=== PATIENT | female | born 1960 | race Caucasian/White ===

== ENCOUNTER 2016-08-15 12:06 | Inpatient (IN) ==
--- NOTE | 2016-08-15 12:13 | Emergency Department Note ---
Disposition Clinical Impression: COPD (chronic obstructive pulmonary disease), Fever Disposition: Admitted As Inpatient Condition: Good Referrals: NO,PCP [Non-Partnered Physician] - Forms: ED Satisfaction Letter Time of Disposition: 13:57 ([facility]) SOB HPI - General Chief Complaint: ED Shortness of Breath/Dyspnea Stated Complaint: diffiiculty breathing Time Seen by Provider: 08/15/16 12:10 Source: patient Mode of arrival: ambulatory Limitations: no limitations Nursing Notes Reviewed: Yes Vital Signs Reviewed: Yes - History of Present Illness Three-day history of fever chills cough congestion runny nose intermittent wheezing worse last evening starting to ease up today patient has had a fevers had no apnea or cyanosis has had sputum production denies any rashes or lesions denies any additional complaints Pt Subjective Complaint: shortness of breath Onset (ago): day(s) (3) Severity: moderate Consistency/Duration: constant, gradually worsening Improves with: nothing Worsens with: exertion, movement, coughing Associated symptoms: Reports: fever, cough, wheezing, sputum production. Denies : chest pain, pain with inspiration, orthopnea, lower extremity pain, polyuria, polydipsia, parasthesias, palpitations, hemoptysis, diaphoresis, nausea/vomiting , syncope, abdominal pain, sense of impending doom Treatment prior to arrival: oxygen Cough present: Yes Cough Description: Involuntary, Weak, Wheezy Cough Frequency: Intermittent Sputum production: Yes Sputum Amount: Small Sputum Color: Yellow - Related Data Home Medications Medication Instructions Recorded Confirmed Aclidinium [place] [Tudorza 400 mcg IH BID 10/13/15 08/15/16 Pressair] Albuterol Sulfate [Ventolin Hfa] 2 puff IH Q4-6H PRN 10/31/15 08/15/16 Budesonide/Formoterol 160/4.5 2 puff IH BIDR 01/13/16 08/15/16 [Symbicort 160/4.5] FLUoxetine HCl [Prozac] 60 mg PO DAILY 01/13/16 08/15/16 Fluticasone Propionate Nasal 50 mcg NS BID 01/13/16 07/15/16 [Flonase] Lamotrigine [Lamictal] 200 mg PO BID 01/13/16 08/15/16 Omeprazole [PriLOSEC] 40 mg PO DAILY 01/13/16 08/15/16 Propranolol [Inderal] 20 mg PO BID 01/13/16 08/15/16 Aripiprazole [Abilify] 20 mg PO DAILY 08/15/16 08/15/16 Allergies Allergy/AdvReac Type Severity Reaction Status Date / Time No Known Allergies Allergy Verified 10/31/15 12:16 All systems ED: reviewed and negative except as stated. Constitutional: Reports: fever, chills. Denies: weakness Eyes: Denies: eye pain ENT ED: Reports: ear pain, throat pain, congestion Cardiovascular: Denies: chest pain, palpitations, syncope Respiratory: Reports: cough, dyspnea, wheezes, sputum production Gastrointestinal: Denies: abdominal pain, nausea Genitourinary: Denies: urgency Musculoskeletal: Denies: back pain Integumentary: Denies: rash, abrasion Neurological: Denies: headache Psychiatric: Denies: anxiety Endocrine: Denies: fatigue Hematological/Lymphatic: Denies: easy bleeding Allergic/Immunologic: Denies: facial swelling Past Medical History - Past Medical History Attestation: Yes The following information was validated with the patient. 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 - Social History Smoking Status: Current every day smoker Smokeless Tobacco Status: No Alcohol use: Reports: none Drug use: Reports: none, other Physical Exam - General Limitations: no limitations General appearance: alert, in no apparent distress - Head Head exam: atraumatic, normocephalic, normal inspection - Eye Eye exam: Present: normal appearance, PERRL, EOMI - ENT ENT exam: normal exam, normal oropharynx, mucous membranes moist, normal external ear exam - Neck Neck exam: Present: normal inspection, full ROM, trachea midline - Chest Chest inspection: Present: normal inspection, symmetric chest wall rise - Respiratory Respiratory exam: Present: wheezes, prolonged expiratory phase - Cardiovascular Cardiovascular exam: Present: regular rate, normal rhythm, normal heart sounds - Abdominal Exam Abdominal exam: Present: soft, Non-Tender, normal bowel sounds - Extremities Exam Extremities exam: Present: normal inspection, full ROM, normal capillary refill. Absent: tenderness, joint swelling - Expanded Lower Extremity Exam Gait: observed and normal - Back Exam Back exam: Present: normal inspection, full ROM. Absent: muscle spasm - Neurological Exam Neurological exam: Present: alert, oriented X3, CN II-XII intact - Psychiatric Psychiatric exam: Present: normal affect, normal mood - Skin Skin exam: Present: warm, dry, intact, normal color Course Course Narrative: Patient seen and examined DuoNeb ordered chest x-ray ordered laboratory data were awaiting results startedantibiotics - Reevaluation(s) Reevaluation #1: Slight improvement post aerosol patient still that was wheezy throughout the lung dan but was moving air a lot easier than she was but with any type of movement start to have some desaturation as result recommended observation transfer to [facility] Dr. [place] agreed Vital Signs Temperature 100.2 F H 08/15/16 12:09 Pulse Rate 101 08/15/16 12:09 Respiratory Rate 21 08/15/16 12:09 Blood Pressure 147/70 08/15/16 12:09 O2 Sat by Pulse Oximetry 91 08/15/16 12:09 Temperature 100.5 F H 08/15/16 13:27 Pulse Rate 98 08/15/16 13:27 Respiratory Rate 18 08/15/16 13:27 Blood Pressure 120/62 08/15/16 13:27 O2 Sat by Pulse Oximetry 92 08/15/16 13:27 Oxygen Delivery Oxygen Delivery Nasal Cannula Shortness of Breath/Dyspnea - Differential Diagnosis Likely: acute exacerbation of chronic obstructive airways disease, pneumonia - Medical Records Medical records reviewed: Yes I reviewed the patient's medical records. - Lab Data Lab results reviewed: Yes I reviewed the patient's lab results. Result diagrams: 08/15/16 12:20 08/15/16 12:20 Lab Results 08/15/16 08/15/16 08/15/16 Range/Units 12:20 12:20 12:20 WBC 11.0 (4.3-11.1) K/mcL RBC 3.79 L (3.82-4.97) M/mcL Hgb 8.2 L (11.5-15.4) g/dL Hct 27.1 L (35.3-44.9) % MCV 71.5 L (83.0-100.0) fL MCH 21.6 L (28.0-33.3) pg MCHC 30.3 L (31.6-35.5) g/dL RDW 18.3 H (11.5-14.5) % Plt Count 342 (140-400) K/mcL MPV 10.6 (9.4-12.4) fL Immature Gran % 0.4 (0-4) % Seg Neutrophils % 84.4 % Lymphocytes % 9.3 % Monocytes % 4.0 % Eosinophils % 1.5 % Basophils % 0.4 % Neutrophils # 9.3 H (1.6-8.9) K/mcL Lymphocytes # 1.0 (0.6-4.6) K/mcL Monocytes # 0.4 (0.0-1.3) K/mcL Eosinophils # 0.2 (0.0-0.6) K/mcL Basophils # 0.0 (0.0-0.2) K/mcL PT 13.4 H (9.4-12.1) Seconds INR 1.2 APTT 34.1 (26.0-36.0) Seconds Sodium 135 L (136-145) mEq/L Potassium 4.4 (3.5-4.5) mEq/L Chloride 102 (98-109) mEq/L Carbon Dioxide 21 (19-29) mEq/L BUN 11 (7-20) mg/dL Creatinine 0.69 (0.57-1.11) mg/dL Est GFR ( Amer) > 60 (> 60) Est GFR (Non-Af Amer) > 60 (> 60) BUN/Creatinine Ratio 16 (6-26) Glucose 97 (70-99) mg/dL Calculated Osmolality 279 L (280-300) Calcium 9.7 (8.6-10.8) mg/dL - Radiology Data Radiology results reviewed: Yes I reviewed the patient's radiology results. ITS Impressions Chest X-Ray 08/15/16 12:17 IMPRESSION: Mild prominence of the interstitial markings which may be in part chronic. Superimposed edema cannot be excluded. No focal infiltrate. D/ / 08/15/2016 12:52:01 Tierra Avalos MD / Lexi Vasquez Interpreting Provider: Tierra Avalos MD - EKG Data EKG attestation: Yes I reviewed and interpreted this EKG. EKG results narrative: This tach rate 101 pr 115 QRS 74 QT 332 axis XXIV Critical Care Time Critical Care Time: No
[2016-08-15] MEDS ORDERED: CefTRIAXone 1,000 MG in D5% in Water (Mini-Bag+) 100 ML IVPB STA (12:16)
[2016-08-15] MEDS ORDERED: Ipratropium/Albuterol Neb 3 ML IH ONE (12:16)
[2016-08-15] MEDS ORDERED: Azithromycin 500 MG in D5% in Water 250 ML IVPB ONE (12:16)
[2016-08-15 12:27] LABS: Basophils % 0.4 %; Eosinophils # 0.2 K/mcL (0.0-0.6); Eosinophils % 1.5 %; Hematocrit 27.1 % (35.3-44.9); Hemoglobin 8.2 g/dL (11.5-15.4); Immature Granulocytes % 0.4 % (0-4); Lymphocytes % 9.3 %; Mean Corpuscular HGB Conc 30.3 g/dL (31.6-35.5); Mean Corpuscular Hemoglobin 21.6 pg (28.0-33.3); Mean Corpuscular Volume 71.5 fL (83.0-100.0); Mean Platelet Volume 10.6 fL (9.4-12.4); Monocytes # 0.4 K/mcL (0.0-1.3); Neutrophils # 9.3 K/mcL (1.6-8.9); Platelet Count 342 K/mcL (140-400); Red Blood Count 3.79 M/mcL (3.82-4.97); Red Cell Distribution Width 18.3 % (11.5-14.5); Segmented Neutrophils % 84.4 %
[2016-08-15] MEDS ORDERED: 0.9 % Sodium Chloride 1,000 ML IVC SCH (12:30)
[2016-08-15 12:42] LABS: BUN/Creatinine Ratio 16 (6-26); Blood Urea Nitrogen 11 mg/dL (7-20); Calcium 9.7 mg/dL (8.6-10.8); Carbon Dioxide 21 mEq/L (19-29); Chloride 102 mEq/L (98-109); Glucose 97 mg/dL (70-99); Osmolality,Calculated 279 (280-300); Potassium 4.4 mEq/L (3.5-4.5); Sodium 135 mEq/L (136-145); eGFR For African Americans > 60 (> 60); eGFR For Non-African Americans > 60 (> 60)
[2016-08-15] MEDS ORDERED: Bumetanide 1 MG/4 ML VIAL IVP ONE (13:14)
[2016-08-15 13:48] LABS: INR 1.2; Prothrombin Time 13.4 Seconds (9.4-12.1)
[2016-08-15 13:51] LABS: Activated Partial Thrombo Time 34.1 Seconds (26.0-36.0)
[2016-08-15] MEDS ORDERED: Naloxone 0.4 MG/ML INJ IVP PRN (14:53)
[2016-08-15] MEDS ORDERED: Ibuprofen 400 MG TABLET PO PRN (14:53)
[2016-08-15] MEDS ORDERED: CefTRIAXone 1,000 MG in D5% in Water (Mini-Bag+) 100 ML IVPB SCH (16:00)
[2016-08-15] MEDS ORDERED: Ipratropium/Albuterol Neb 3 ML IH SCH (17:00)
[2016-08-15] MEDS: 0.9 % Sodium Chloride 1,000 ML IVC SCH (18:16)
--- NOTE | 2016-08-15 19:38 | Internal Med History&Physical ---
Date of Encounter: 08/15/16 Time of Encounter: 18:45 Assessment and Plan (1) Dyspnea Current visit: Yes Status: Chronic Suspect multifactorial etiology including anemia, COPD, and possible lung infection. Qualifiers: Dyspnea type: shortness of breath Qualified Code(s): R06.02 - Shortness of breath (2) Microcytic anemia Current visit: Yes Status: Acute Suspect acute and chronic blood loss. Will order CT of abdomen/pelvis and chest to further evaluate. We will order anemia testing in a.m. (3) Vitamin D deficiency Current visit: Yes Status: Acute Vitamin D level was 13 on 04/13/2016. We will recheck in a.m. (4) Weight gain Current visit: Yes Status: Acute We will recheck labs in a.m. (5) Fever Current visit: Yes Status: Acute Will order chest CT and UA. Recheck labs in a.m. Qualifiers: Fever type: unspecified Qualified Code(s): R50.9 - Fever, unspecified Internal Medicine - H&P: HPI Chief complaint: Cough and dyspnea Admitted From: Home Plans for Post Hospital Care: Home History of present illness: Ms. Leiva is a 56 year old female came to emergency room complaining of cough , sore throat, and dyspnea. She states the cough has been present for approximately 3 days. There was minimal productivity. The dyspnea has been worsening over several months. Evaluated in emergency room and felt to have exacerbation of COPD and anemia. She was admitted to [facility] floor for ongoing care needs. She reports she has taken a bottle containing 200 Aleve [200 mg pill] over the past 2 weeks for pain in her arms. She has not noticed melena or hematochezia. She has not had significant abdominal pain. Past Med Surg Social Fam HX - Past Medical History Medical history: arthritis, asthma, COPD, GERD, other Psychiatric history: anxiety, bipolar, depression, panic disorder, prior suicide attempt, previous psychiatric hospitalization - Past Surgical History Surgical History: herniorrhaphy, orthopedic, other, other - Social History Smoking Status: Current every day smoker Packs per day: 1 Smokeless Tobacco Status: No Alcohol use: none Drug use: none, other - Family History Mother Living Status: Hx Family Cardiac Disorders: Yes Hx Family Respiratory Disorders: Yes Hx Family Cancer: Yes Hx Family GI Disorders: Yes Hx Family Endocrine Disorder: Yes Hx Family Neuromuscular Disorders: No Hx Family Neurologic Disorders: No Hx Family HEENT Disorders: No Hx Family Autoimmune Disorders: No Internal Medicine - H&P: Meds Aclidinium [place] [Tudorza Pressair] 400 mcg IH BID 10/13/15 [History] Albuterol Sulfate [Ventolin Hfa] 2 puff IH Q4-6H PRN 10/31/15 [History] Budesonide/Formoterol 160/4.5 [Symbicort 160/4.5] 2 puff IH BIDR 01/13/16 [ History] FLUoxetine HCl [Prozac] 60 mg PO DAILY 01/13/16 [History] Fluticasone Propionate Nasal [Flonase] 50 mcg NS BID 01/13/16 [History] Lamotrigine [Lamictal] 200 mg PO BID 01/13/16 [History] Omeprazole [PriLOSEC] 40 mg PO DAILY 01/13/16 [History] Propranolol [Inderal] 20 mg PO BID 01/13/16 [History] Aripiprazole [Abilify] 20 mg PO DAILY 08/15/16 [History] Allergies No Known Allergies Allergy (Verified 10/31/15 12:16) All Systems PM: A 10-system review of systems was performed and is negative for pertinent findings except as documented above in the HPI. Review of systems: Gen.: Her weight has increased from 64.41 kg on 12/24/2014 to 81.647 kg on admission now. She has no explanation for this Cardiovascular: She has history of hypertension. She gets chest discomfort that she describes as a "heaviness" on exertion. She states it has worsened in frequency and severity over the past few months. She denies known PR heart failure DVT or pulmonary embolus. Respiratory: She has smoked since age 15 up to 2 packs per day. She has oxygen at home but wears it only sporadically. She has not had PFTs done. She has not been tested for sleep apnea.. GI: She denies disorder of her liver gallbladder or exocrine pancreas : She denies hematuria dysuria or kidney stones. Neurologic: She denies large distribution strokes or seizures. Endocrine: She denies diabetes or thyroid disease or hyperlipidemia Hematology/oncology: She denies blood disorders or cancers. She had microcytic anemia found on emergency room labs Psychiatric: She has anxiety and depression with bipolar disorder [place] skeletal: She has DJD but no known gout or osteoporosis - Constitutional Vitals: Temp Pulse Resp BP Pulse Ox 100.5 F H 95 18 134/71 95 08/15/16 14:57 08/15/16 14:57 08/15/16 16:26 08/15/16 14:57 08/15/16 16:26 Exam: General: She is a well-developed well-nourished female who appears in no severe distress at present time. HEENT: Head is atraumatic and normocephalic. Eyes: EOMI. There is no scleral icterus. Mouth: Mucosa is moist. Neck: Supple and nontender. There is no thyromegaly or adenopathy noted. Heart: Regular with rate 100/m. No murmurs or gallops are heard. Lungs: No wheezes or crackles are heard. Abdomen: Soft and nontender. No masses or guarding are noted. Extremities: There is no cyanosis edema or clubbing noted. Dorsalis pedis and posttibial pulses are 1-2 over 2 bilaterally. Neurologic: Mental status: She is talkative and a good historian. Cranial nerves: Smile is symmetric. Forehead wrinkles bilaterally. Tongue protrudes midline. EOMI. Motor: There is no pronator drift. Cerebellar: Finger to nose is intact bilaterally. Skin: Warm and dry Internal Med - H&P Results - Labs CBC & Chem 7: 08/15/16 12:20 08/15/16 12:20
[2016-08-15] MEDS: Budesonide/Formoterol 160/4.5 MDI IH SCH (22:19)
[2016-08-15] MEDS: Albuterol 2.5 MG/3 ML NEBULIZER IH PRN (22:19)
[2016-08-15] MEDS: MDI IH SCH (22:35)
[2016-08-15] MEDS: TUDORZA 400 MCG IH SCH (22:35)
[2016-08-15 23:24] LABS: Bilirubin,Urine Negative (Negative); Blood,Urine Trace-intact (Negative); Clarity,Urine Clear (Clear); Glucose,Urine (UA) Normal (Normal); Ketones,Urine Negative (Negative); Leukocyte Esterase,Urine Negative (Negative); Nitrite,Urine Negative (Negative); Protein,Urine 100 mg/dL (Neg-Trace); Urobilinogen,Urine Normal (Normal)
[2016-08-15 23:31] LABS: Color,Urine Light Yellow (Yellow)
[2016-08-15 23:36] LABS: Squamous Epithelial Cell,Urine Few per lpf (None-Few)
[2016-08-15 23:37] LABS: Bacteria,Urine Few per hpf (None-Few); Mucus,Urine Few (Few); RBC,Urine 0-3 per hpf (0-3); WBC,Urine 0-3 per hpf (0-3)
[2016-08-16] MEDS: 0.9 % Sodium Chloride 1,000 ML IVC SCH (01:16)
[2016-08-16 06:15] LABS: Basophils % 0.1 %; Hematocrit 24.6 % (35.3-44.9); Hemoglobin 7.6 g/dL (11.5-15.4); Immature Granulocytes % 0.2 % (0-4); Lymphocytes # 0.6 K/mcL (0.6-4.6); Lymphocytes % 5.2 %; Mean Corpuscular HGB Conc 30.9 g/dL (31.6-35.5); Mean Corpuscular Hemoglobin 21.8 pg (28.0-33.3); Mean Corpuscular Volume 70.7 fL (83.0-100.0); Mean Platelet Volume 11.1 fL (9.4-12.4); Monocytes # 0.3 K/mcL (0.0-1.3); Monocytes % 2.5 %; Platelet Count 352 K/mcL (140-400); Red Blood Count 3.48 M/mcL (3.82-4.97); Red Cell Distribution Width 18.6 % (11.5-14.5)
[2016-08-16] MEDS: Albuterol 2.5 MG/3 ML NEBULIZER IH PRN ×2 (06:17→15:25)
[2016-08-16 06:36] LABS: Alanine Aminotransferase 14 Units/L (0-55); Albumin 2.9 g/dL (3.5-5.0); Albumin/Globulin Ratio 0.7 (1.1-2.2); Alkaline Phosphatase 104 Units/L (38-126); Aspartate Amino Transferase 14 Units/L (5-34); BUN/Creatinine Ratio 20 (6-26); Bilirubin,Total 0.4 mg/dL (0.2-1.2); Blood Urea Nitrogen 13 mg/dL (7-20); Calcium 9.2 mg/dL (8.6-10.8); Carbon Dioxide 21 mEq/L (19-29); Chloride 103 mEq/L (98-109); Globulin 4.3 g/dL (2.4-3.5); Glucose 143 mg/dL (70-99); Osmolality,Calculated 285 (280-300); Potassium 4.3 mEq/L (3.5-4.5); Sodium 136 mEq/L (136-145); Total Protein 7.2 g/dL (6.0-8.3); eGFR For African Americans > 60 (> 60); eGFR For Non-African Americans > 60 (> 60)
[2016-08-16 06:57] LABS: Thyroid Stimulating Hormone 0.264 mcIU/mL (0.350-4.840)
[2016-08-16] MEDS: FLUoxetine 20 MG CAPSULE PO SCH (08:36)
--- NOTE | 2016-08-16 10:35 | Internal Med Progress Note ---
Date of Encounter: 08/16/16 Time of Encounter: 10:25 - Assessment and plan (1) Dyspnea Current Visit: Yes Status: Chronic Assessment and plan: August 16. CT showed bibasilar pneumonia with COPD. She will continue Rocephin and Zithromax and I will add lactobacillus. Recheck labs in a.m. Qualifiers: Dyspnea type: shortness of breath Qualified Code(s): R06.02 - Shortness of breath (2) Microcytic anemia Current Visit: Yes Status: Acute Assessment and plan: August 16. Anemia testing is pending. She will likely need iron dextran infusion. CT of abdomen/pelvis was unremarkable. Told her she could have UGI/ LGI endoscopy done as an outpatient (3) Vitamin D deficiency Current Visit: Yes Status: Acute Assessment and plan: August 16. Vitamin D level is pending (4) Weight gain Current Visit: Yes Status: Acute Assessment and plan: August 16. TSH is minimally suppressed. Free T4 was normal. (5) Community acquired pneumonia Current Visit: No Status: Acute Assessment and plan: August 16. Continue IV antibiotics and add lactobacillus. Recheck labs in a.m. - Subjective Interval history: August 16. She has no new complaints and feels better overall. - Constitutional Vitals: Temp Pulse Resp BP Pulse Ox 97.9 F 78 18 122/58 93 08/16/16 06:36 08/16/16 06:36 08/16/16 06:36 08/16/16 06:36 08/16/16 06:36 Exam: Her affect is bright and cheerful. She does not appear dyspneic. I reviewed her medications labs and CT reports with her. Internal Medicine: Result - Labs CBC & Chem 7: 08/16/16 05:45 08/16/16 05:45 Labs: Short CBC 08/16/16 Range/Units 05:45 WBC 12.0 H (4.3-11.1) K/mcL Hgb 7.6 L (11.5-15.4) g/dL Hct 24.6 L (35.3-44.9) % Plt Count 352 (140-400) K/mcL Neutrophils # 11.0 H (1.6-8.9) K/mcL BMP 08/16/16 05:45 Sodium 136 Potassium 4.3 Chloride 103 Carbon Dioxide 21 BUN 13 Creatinine 0.66 Glucose 143 H Calcium 9.2 Liver Function 08/16/16 Range/Units 05:45 Total Bilirubin 0.4 (0.2-1.2) mg/dL AST 14 (5-34) Units/L ALT 14 (0-55) Units/L Alkaline Phosphatase 104 (38-126) Units/L Albumin 2.9 L (3.5-5.0) g/dL Urine 08/15/16 Range/Units 23:20 Urine Color Light Yellow (Yellow) Urine Clarity Clear (Clear) Urine pH 7.0 (5.0-8.0) pH Units Ur Specific Pace 1.010 (1.010-1.025) Urine Protein 100 H (Neg-Trace) mg/dL Urine Glucose (UA) Normal (Normal) mg/dL - ABG Interpretation ABG results: PT/INR, D-dimer PT 13.4 Seconds (9.4-12.1) H 08/15/16 12:20 - Impressions Impressions Abdomen/Pelvis CT 08/15/16 19:51 IMPRESSION: 1. Bronchiectasis and mucous plugging in the bilateral lower lobes. Multifocal ground-glass opacities in the bilateral lungs may represent bronchiolitis or bronchopneumonia. An acute infectious or inflammatory process cannot be excluded otherwise. 2. Moderate centrilobular emphysema. 3. Mucosal thickening and reflux in the distal esophagus secondary to a hiatal hernia. 4. No significant findings in the abdomen or pelvis. D/ / Cliff Sarah MD / Cliff Sarah MD Interpreting Provider: Cliff Sarah MD Chest CT 08/15/16 19:51 IMPRESSION: 1. Bronchiectasis and mucous plugging in the bilateral lower lobes. Multifocal ground-glass opacities in the bilateral lungs may represent bronchiolitis or bronchopneumonia. An acute infectious or inflammatory process cannot be excluded otherwise. 2. Moderate centrilobular emphysema. 3. Mucosal thickening and reflux in the distal esophagus secondary to a hiatal hernia. 4. No significant findings in the abdomen or pelvis. D/ / Cliff Sarah MD / Cliff Sarah MD Interpreting Provider: Cliff Sarah MD Consult Discharge Plan - Plan Referrals: Tierra Lamas CNP [Primary Care Provider] - 1 week
[2016-08-16 10:55] LABS: % Iron Saturation 2 % (15-50); Iron 9 mcg/dL (50-170); Transferrin 296 mg/dL (180-382)
[2016-08-16 11:17] LABS: Ferritin 92 ng/ml (5-204)
[2016-08-16 11:33] LABS: Folate 7.4 ng/mL (7.0-31.4)
[2016-08-16] MEDS: Budesonide/Formoterol 160/4.5 MDI IH SCH ×2 (11:57→21:58)
[2016-08-16] MEDS: TUDORZA 400 MCG IH SCH ×2 (11:59→20:58)
[2016-08-16] MEDS: MDI IH SCH ×2 (11:59→20:58)
[2016-08-16] MEDS ORDERED: CefTRIAXone 1,000 MG in D5% in Water (Mini-Bag+) 100 ML IVPB SCH (12:00)
[2016-08-16] MEDS: Lactobacillus 1 EACH CAP.SPRINK PO SCH ×2 (12:09→20:51)
[2016-08-16] MEDS: *HR* Enoxaparin 40 MG/0.4 ML SYRINGE SQ SCH (12:10)
[2016-08-16] MEDS: CefTRIAXone 1,000 MG in D5% in Water (Mini-Bag+) 100 ML IVPB SCH (13:11)
[2016-08-16] MEDS ORDERED: Azithromycin 500 MG in D5% in Water 250 ML IVPB SCH (14:00)
--- NOTE | 2016-08-16 17:49 | Electrocardiograph Report ---
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
[2016-08-16] MEDS: Acetaminophen 325 MG TABLET PO PRN (18:57)
[2016-08-17] MEDS: Acetaminophen 325 MG TABLET PO PRN ×2 (00:58→07:13)
[2016-08-17] MEDS: *HR* Enoxaparin 40 MG/0.4 ML SYRINGE SQ SCH (06:02)
[2016-08-17 06:47] LABS: Basophils % 0.1 %; Eosinophils # 0.2 K/mcL (0.0-0.6); Eosinophils % 2.2 %; Hematocrit 24.3 % (35.3-44.9); Hemoglobin 7.3 g/dL (11.5-15.4); Immature Granulocytes % 0.4 % (0-4); Lymphocytes # 2.2 K/mcL (0.6-4.6); Lymphocytes % 25.7 %; Mean Corpuscular Hemoglobin 21.5 pg (28.0-33.3); Mean Corpuscular Volume 71.5 fL (83.0-100.0); Mean Platelet Volume 11.2 fL (9.4-12.4); Monocytes # 0.5 K/mcL (0.0-1.3); Monocytes % 6.3 %; Neutrophils # 5.5 K/mcL (1.6-8.9); Platelet Count 378 K/mcL (140-400); Red Cell Distribution Width 18.6 % (11.5-14.5); Segmented Neutrophils % 65.3 %
[2016-08-17 07:04] LABS: BUN/Creatinine Ratio 20 (6-26); Blood Urea Nitrogen 14 mg/dL (7-20); Carbon Dioxide 22 mEq/L (19-29); Chloride 103 mEq/L (98-109); Glucose 98 mg/dL (70-99); Osmolality,Calculated 282 (280-300); Potassium 3.8 mEq/L (3.5-4.5); Sodium 136 mEq/L (136-145); eGFR For African Americans > 60 (> 60); eGFR For Non-African Americans > 60 (> 60)
[2016-08-17] MEDS: Lactobacillus 1 EACH CAP.SPRINK PO SCH (07:12)
[2016-08-17] MEDS: FLUoxetine 20 MG CAPSULE PO SCH (07:13)
[2016-08-17] MEDS ORDERED: Iron Dextran Complex 1,500 MG in 0.9 % Sodium Chloride 500 ML IVPB ONE (07:30)
[2016-08-17] MEDS: Albuterol 2.5 MG/3 ML NEBULIZER IH PRN (08:28)
[2016-08-17] MEDS: Budesonide/Formoterol 160/4.5 MDI IH SCH (08:28)
[2016-08-17] MEDS ORDERED: SODIUM CHLORIDE 0.9% IVPB ONE (10:00)
[2016-08-17] MEDS ORDERED: IRON DEXTRAN COMPLEX IVPB ONE (10:00)
[2016-08-17] MEDS: TUDORZA 400 MCG IH SCH (10:18)
[2016-08-17] MEDS: MDI IH SCH (10:18)
[2016-08-17 11:40] VITALS: BP 122/70
--- NOTE | 2016-08-17 12:13 | Discharge Summary ---
Date of Encounter: 08/17/16 Time of Encounter: 12:05 - Discharge Diagnosis (1) Community acquired pneumonia Priority: Primary Status: Acute (2) Microcytic anemia Priority: Secondary Status: Acute (3) Dyspnea Priority: Secondary Status: Chronic Qualifiers: Dyspnea type: shortness of breath Qualified Code(s): R06.02 - Shortness of breath (4) Vitamin D deficiency Priority: Secondary Status: Acute (5) Weight gain Priority: Secondary Status: Acute - Discharge Medications Prescriptions: Cefuroxime PO [Ceftin] 500 mg PO Q12HR #6 tablet Azithromycin [Zithromax] 250 mg PO DAILY #3 tablet Cholecalciferol (D-3) [Vitamin D] 2,000 unit PO DAILY #60 tablet Lactobacillus [Culturelle] 1 each PO BID #6 cap.sprink Home Medications: Aclidinium [place] [Tudorza Pressair] 400 mcg IH BID 10/13/15 [History] Albuterol Sulfate [Ventolin Hfa] 2 puff IH Q4-6H PRN 10/31/15 [History] Budesonide/Formoterol 160/4.5 [Symbicort 160/4.5] 2 puff IH BIDR 01/13/16 [ History] FLUoxetine HCl [Prozac] 60 mg PO DAILY 01/13/16 [History] Fluticasone Propionate Nasal [Flonase] 50 mcg NS BID 01/13/16 [History] Lamotrigine [Lamictal] 200 mg PO BID 01/13/16 [History] Omeprazole [PriLOSEC] 40 mg PO DAILY 01/13/16 [History] Propranolol [Inderal] 20 mg PO BID 01/13/16 [History] Aripiprazole [Abilify] 20 mg PO DAILY 08/15/16 [History] Azithromycin [Zithromax] 250 mg PO DAILY #3 tablet 08/17/16 [Rx] Cefuroxime PO [Ceftin] 500 mg PO Q12HR #6 tablet 08/17/16 [Rx] Cholecalciferol (D-3) [Vitamin D] 2,000 unit PO DAILY #60 tablet 08/17/16 [Rx] Lactobacillus [Culturelle] 1 each PO BID #6 cap.sprink 08/17/16 [Rx] Allergies/Adverse Reactions: Allergies No Known Allergies Allergy (Verified 10/31/15 12:16) Date of admission: 08/16/16 12:54 Primary care physician: Tierra Lamas - Patient Status Disposition: Home, Self-Care Condition: Good Overall status at discharge: patient is progressing back to baseline - Discharge Instructions Follow Up With: Tierra Lamas CNP [Primary Care Provider] - 1 week - Diet and Activity Activity: resume usual activities as tolerated Diet: advance to your usual diet Hospital course: Ms. Leiva is a 56 year old female who came to emergency room complaining of cough, sore throat, and dyspnea. She states the cough has been present for approximately 3 days. There was minimal productivity. The dyspnea has been worsening over several months. She was evaluated in emergency room and felt to have exacerbation of COPD and anemia. She was admitted to [facility] floor for ongoing care needs. Initial orders were written by the emergency room physician. I saw her on August 15 and performed a history and physical. She was started empirically on Rocephin and Zithromax with lactobacillus. A chest CT was ordered to further evaluate her dyspnea, fever, and anemia. There was evidence of bibasilar infiltrate consistent with bronchiolitis or bronchopneumonia. She had good clinical response to treatment with WBC count normalizing to 8.4 K and segs decreasing to 65.3% on the day of discharge. She will continue with antibiotic and probiotic for 3 additional days at discharge. Anemia testing showed serum iron 9, transferrin saturation 2%, transferrin 296, and ferritin 92. B12 was elevated 1064 and folate normal at 7.4. She was given iron dextran infusion. I explained to her she likely had anemia from prolonged use of NSAID drugs. I recommended she remain off these. TSH returned minimally suppressed at 0.264. Free T4 was normal at 0.99. Vitamin D level returned low at 11. She will be given vitamin D 2000 international units daily at discharge. On August 17 she felt significantly improved and stable for discharge home. She will follow with her PCP Tierra Lamas CNP within 1 week. I told the patient her PCP could order further workup for other causes of iron deficiency anemia if anemia recurs. - Time Spent with Patient Total time spent providing and/or coordinating discharge services: - Constitutional Vitals: Temp Pulse Resp BP Pulse Ox 97.9 F 63 16 122/70 92 08/17/16 11:30 08/17/16 11:30 08/17/16 11:30 08/17/16 11:30 08/17/16 11:30
[2016-08-17] MEDS: CefTRIAXone 1,000 MG in D5% in Water (Mini-Bag+) 100 ML IVPB SCH (13:06)
== END 2016-08-17 13:35 | disposition home or self-care (01) | DRG 140 ==
LOC: INPPIK 12:06 → EMEROOPIK 12:06 → INPPIK 14:58
PROVIDERS: ADMIT Internal Medicine; ATTEND Internal Medicine

== ENCOUNTER 2018-08-15 14:58 | Observation (INO) ==
--- NOTE | 2018-08-15 15:28 | Emergency Department Note ---
Disposition Clinical Impression: Chest pain Disposition: Admitted As Inpatient Chest Pain HPI - General Chief Complaint: ED Chest Pain Stated Complaint: chest pain for 2 weeks Time Seen by Provider: 08/15/18 15:15 Source: patient Mode of arrival: ambulatory Limitations: no limitations Vital Signs Reviewed: Yes Nursing Notes Reviewed: Yes - History of Present Illness HPI Narrative: Patient complains of weakness and fatigue with pain in her legs from cramping she says she is not feeling well, with intermittent chest pains for couple of months. She has not seen her doctor for this. She also says her blood pressure has been high. Onset (ago): month(s) (2 months) Duration: intermittent Onset: during rest Pain Location: substernal Severity scale (1-10): 5 Improves with: nothing Worsens with: nothing Associated symptoms: Reports: nausea - Related Data Home Medications Medication Instructions Recorded Confirmed Oxygen 2 l IH PRN PRN 04/06/18 08/15/18 Aclidinium [place] [Tudorza 400 mcg IH BID 08/15/18 08/15/18 Pressair] Albuterol Sulfate [Albuterol 2 puff IH Q6HR PRN 08/15/18 08/15/18 Inhaler] Budesonide/Formoterol 160/4.5 1 puff IH BIDR 08/15/18 08/15/18 [Symbicort 160/4.5] FLUoxetine HCl [PROzac] 20 mg PO DAILY 08/15/18 08/15/18 Pantoprazole Sodium [Protonix] 40 mg PO BID 08/15/18 08/15/18 Rosuvastatin [Crestor] 20 mg PO HS 08/15/18 08/15/18 amLODIPine [Norvasc] 10 mg PO DAILY 08/15/18 08/15/18 lamoTRIgine [Lamictal] 100 mg PO BID 08/15/18 08/15/18 Allergies Allergy/AdvReac Type Severity Reaction Status Date / Time No Known Allergies Allergy Verified 01/18/17 11:35 All systems ED: reviewed and negative except as stated. Review of Systems: As Per HPI Constitutional: Reports: as per HPI, weakness Eyes: Denies: eye pain, eye discharge, vision change ENT ED: Denies: ear pain, throat pain, dental pain, hearing loss, epistaxis, congestion, dysphagia Cardiovascular: Reports: as per HPI, chest pain. Denies: palpitations, dyspnea on exertion, edema, syncope Respiratory: Denies: cough, dyspnea, wheezes, hemoptysis, stridor Gastrointestinal: Denies: abdominal pain, nausea, vomiting, diarrhea, constipation, hematemesis, melena, hematochezia Genitourinary: Denies: dysuria, frequency, hematuria, discharge Musculoskeletal: Denies: back pain, neck pain, arthralgia, myalgia Integumentary: Denies: rash, abrasion, lesions Neurological: Denies: headache, weakness, numbness, paresthesias, confusion, abnormal gait, vertigo Psychiatric: Denies: anxiety, depression, suicidal thoughts, homicidal thoughts, auditory hallucinations, visual hallucinations Endocrine: Denies: fatigue Hematological/Lymphatic: Denies: easy bleeding, easy bruising Chest Pain PMH - Past Medical History Medical history: Reports: COPD, GERD, hyperlipidemia, hypertension, other Surgical history: Reports: herniorrhaphy, orthopedic, other, other Psychiatric history: Reports: bipolar, previous psychiatric hospitalization 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 - Social History Smoking Status: Current every day smoker Alcohol use: Reports: none Drug use: Reports: marijuana Physical Exam - General Limitations: no limitations General appearance: alert - Head Head exam: atraumatic, normocephalic, normal inspection - Eye Eye exam: Present: normal appearance, PERRL, EOMI - ENT ENT exam: normal exam, normal oropharynx, mucous membranes moist - Neck Neck exam: Present: normal inspection, full ROM, trachea midline - Chest Chest inspection: Present: normal inspection, symmetric chest wall rise - Respiratory Respiratory exam: Present: normal lung sounds bilaterally - Cardiovascular Cardiovascular exam: Present: regular rate, normal rhythm, normal heart sounds - Abdominal Exam Abdominal exam: Present: soft, Non-Tender. Absent: tenderness, distention, guarding, rebound, rigidity - Extremities Exam Extremities exam: Present: normal inspection, full ROM. Absent: tenderness, pe jonatan edema - Back Exam Back exam: Present: normal inspection, full ROM. Absent: tenderness - Neurological Exam Neurological exam: Present: alert, oriented X3 - Psychiatric Psychiatric exam: Present: normal affect, normal mood - Skin Skin exam: Present: warm, dry, intact Course Vital Signs Temperature 100.2 F H 08/15/18 14:59 Pulse Rate 82 08/15/18 14:59 Respiratory Rate 18 08/15/18 14:59 Blood Pressure 135/67 08/15/18 14:59 O2 Sat by Pulse Oximetry 94 08/15/18 14:59 Temperature 98 F 08/15/18 18:41 Pulse Rate 56 08/15/18 18:41 Respiratory Rate 95 08/15/18 18:41 Blood Pressure 122/73 08/15/18 18:41 O2 Sat by Pulse Oximetry 93 08/15/18 18:41 Oxygen Delivery Oxygen Delivery Nasal Cannula Chest Pain - MDM Narrative Medical decision making narrative: I reviewed the patient's medication list Case was discussed with Dr. Monroy who is graciously accepted admission of the [facility] - Lab Data Lab results reviewed: Yes I reviewed the patient's lab results. Result diagrams: 08/15/18 15:44 08/15/18 15:44 Lab Results 08/15/18 08/15/18 08/15/18 Range/Units 15:44 15:44 15:44 WBC 8.1 (4.3-11.1) K/mcL RBC 4.54 (3.82-4.97) M/mcL Hgb 15.1 (11.5-15.4) g/dL Hct 43.4 (35.3-44.9) % MCV 95.6 (83.0-100.0) fL MCH 33.3 (28.0-33.3) pg MCHC 34.8 (31.6-35.5) g/dL RDW 13.0 (11.5-14.5) % Plt Count 192 (140-400) K/mcL MPV 11.3 (9.4-12.4) fL Immature Gran % 0.2 (0-4) % Seg Neutrophils % 60.7 % Lymphocytes % 30.4 % Monocytes % 5.9 % Eosinophils % 2.3 % Basophils % 0.5 % Neutrophils # 4.9 (1.6-8.9) K/mcL Lymphocytes # 2.5 (0.6-4.6) K/mcL Monocytes # 0.5 (0.0-1.3) K/mcL Eosinophils # 0.2 (0.0-0.6) K/mcL Basophils # 0.0 (0.0-0.2) K/mcL PT 11.6 (9.4-12.1) Seconds INR 1.0 APTT 36.6 H (26.0-36.0) Seconds Sodium 141 (136-145) mEq/L Potassium 4.2 (3.5-5.1) mEq/L Chloride 106 (98-107) mEq/L Carbon Dioxide 28 (23-29) mEq/L BUN 17 (6-20) mg/dL Creatinine 0.70 (0.60-1.20) mg/dL Est GFR ( Amer) > 60 (> 60) Est GFR (Non-Af Amer) > 60 (> 60) BUN/Creatinine Ratio 24 (6-26) Glucose 89 (70-105) mg/dL Calculated Osmolality 293 (280-300) Calcium 9.7 (8.6-10.3) mg/dL Total Bilirubin 0.5 (0.3-1.0) mg/dL AST 15 (13-39) Units/L ALT 18 (7-52) Units/L Alkaline Phosphatase 90 (34-104) Units/L Troponin I < 0.03 (< 0.04) ng/mL Serum Total Protein 7.3 (6.4-8.9) g/dL Albumin 4.2 (3.5-5.7) g/dL Globulin 3.1 (2.4-3.5) g/dL Albumin/Globulin Ratio 1.4 (1.1-2.2) 08/15/18 Range/Units 17:38 WBC (4.3-11.1) K/mcL RBC (3.82-4.97) M/mcL Hgb (11.5-15.4) g/dL Hct (35.3-44.9) % MCV (83.0-100.0) fL MCH (28.0-33.3) pg MCHC (31.6-35.5) g/dL RDW (11.5-14.5) % Plt Count (140-400) K/mcL MPV (9.4-12.4) fL Immature Gran % (0-4) % Seg Neutrophils % % Lymphocytes % % Monocytes % % Eosinophils % % Basophils % % Neutrophils # (1.6-8.9) K/mcL Lymphocytes # (0.6-4.6) K/mcL Monocytes # (0.0-1.3) K/mcL Eosinophils # (0.0-0.6) K/mcL Basophils # (0.0-0.2) K/mcL PT (9.4-12.1) Seconds INR APTT (26.0-36.0) Seconds Sodium (136-145) mEq/L Potassium (3.5-5.1) mEq/L Chloride (98-107) mEq/L Carbon Dioxide (23-29) mEq/L BUN (6-20) mg/dL Creatinine (0.60-1.20) mg/dL Est GFR ( Amer) (> 60) Est GFR (Non-Af Amer) (> 60) BUN/Creatinine Ratio (6-26) Glucose (70-105) mg/dL Calculated Osmolality (280-300) Calcium (8.6-10.3) mg/dL Total Bilirubin (0.3-1.0) mg/dL AST (13-39) Units/L ALT (7-52) Units/L Alkaline Phosphatase (34-104) Units/L Troponin I < 0.03 (< 0.04) ng/mL Serum Total Protein (6.4-8.9) g/dL Albumin (3.5-5.7) g/dL Globulin (2.4-3.5) g/dL Albumin/Globulin Ratio (1.1-2.2) - Radiology Data Radiology results reviewed: Yes I reviewed the patient's radiology results. - EKG Data EKG attestation: Yes I reviewed and interpreted this EKG. EKG results narrative: EKG shows normal sinus rhythm with a rate of 60 bpm. DC interval is 149 ms. QRS duration 83 ms QT and QTC intervals are 412 ms R axis LXVIII degrees. There is no acute ST elevation
[2018-08-15] MEDS ORDERED: Nitroglycerin 0.4 MG TAB.SUBL SL PRN ×2 (15:30→19:10)
[2018-08-15] MEDS ORDERED: 0.9 % Sodium Chloride 1,000 ML IVC SCH ×2 (15:30→19:10)
[2018-08-15] MEDS ORDERED: Aspirin 81 MG TAB.CHEW PO STA (15:30)
[2018-08-15 15:52] LABS: Basophils % 0.5 %; Eosinophils # 0.2 K/mcL (0.0-0.6); Eosinophils % 2.3 %; Hematocrit 43.4 % (35.3-44.9); Hemoglobin 15.1 g/dL (11.5-15.4); Immature Granulocytes % 0.2 % (0-4); Lymphocytes # 2.5 K/mcL (0.6-4.6); Lymphocytes % 30.4 %; Mean Corpuscular HGB Conc 34.8 g/dL (31.6-35.5); Mean Corpuscular Hemoglobin 33.3 pg (28.0-33.3); Mean Corpuscular Volume 95.6 fL (83.0-100.0); Mean Platelet Volume 11.3 fL (9.4-12.4); Monocytes # 0.5 K/mcL (0.0-1.3); Monocytes % 5.9 %; Neutrophils # 4.9 K/mcL (1.6-8.9); Platelet Count 192 K/mcL (140-400); Red Blood Count 4.54 M/mcL (3.82-4.97); Segmented Neutrophils % 60.7 %
[2018-08-15 16:00] LABS: Prothrombin Time 11.6 Seconds (9.4-12.1)
[2018-08-15 16:02] LABS: Activated Partial Thrombo Time 36.6 Seconds (26.0-36.0)
[2018-08-15 16:10] LABS: Troponin I < 0.03 ng/mL (< 0.04)
[2018-08-15 16:21] LABS: Alanine Aminotransferase 18 Units/L (7-52); Albumin 4.2 g/dL (3.5-5.7); Albumin/Globulin Ratio 1.4 (1.1-2.2); Alkaline Phosphatase 90 Units/L (34-104); Aspartate Amino Transferase 15 Units/L (13-39); BUN/Creatinine Ratio 24 (6-26); Bilirubin,Total 0.5 mg/dL (0.3-1.0); Blood Urea Nitrogen 17 mg/dL (6-20); Calcium 9.7 mg/dL (8.6-10.3); Carbon Dioxide 28 mEq/L (23-29); Chloride 106 mEq/L (98-107); Globulin 3.1 g/dL (2.4-3.5); Glucose 89 mg/dL (70-105); Osmolality,Calculated 293 (280-300); Potassium 4.2 mEq/L (3.5-5.1); Sodium 141 mEq/L (136-145); Total Protein 7.3 g/dL (6.4-8.9); eGFR For Non-African Americans > 60 (> 60)
[2018-08-15] MEDS ORDERED: Naloxone 0.4 MG/ML INJ IVP PRN (19:10)
[2018-08-15] MEDS ORDERED: NON-FORMULARY MEDICATION 1 EACH EACH (Oxygen [Oxygen] 2 L) IH PRN (19:10)
[2018-08-15] MEDS: (Aclidinium Bromide [Tudorza Pressair] 400 MCG) IH SCH (21:00)
[2018-08-15] MEDS: lamoTRIgine 100 MG TABLET PO SCH (21:41)
[2018-08-15] MEDS: Budesonide/Formoterol 160/4.5 1 PUFF INH IH SCH (21:48)
[2018-08-16 00:41] LABS: Basophils % 0.6 %; Eosinophils # 0.2 K/mcL (0.0-0.6); Eosinophils % 3.5 %; Hematocrit 39.4 % (35.3-44.9); Hemoglobin 13.5 g/dL (11.5-15.4); Immature Granulocytes % 0.2 % (0-4); Lymphocytes # 1.8 K/mcL (0.6-4.6); Lymphocytes % 33.7 %; Mean Corpuscular HGB Conc 34.3 g/dL (31.6-35.5); Mean Corpuscular Hemoglobin 33.3 pg (28.0-33.3); Mean Corpuscular Volume 97.3 fL (83.0-100.0); Mean Platelet Volume 11.7 fL (9.4-12.4); Monocytes # 0.4 K/mcL (0.0-1.3); Neutrophils # 2.9 K/mcL (1.6-8.9); Platelet Count 164 K/mcL (140-400); Red Blood Count 4.05 M/mcL (3.82-4.97)
[2018-08-16 00:57] LABS: BUN/Creatinine Ratio 33 (6-26); Blood Urea Nitrogen 15 mg/dL (6-20); Calcium 7.5 mg/dL (8.6-10.3); Carbon Dioxide 25 mEq/L (23-29); Chloride 113 mEq/L (98-107); Glucose 99 mg/dL (70-105); Osmolality,Calculated 295 (280-300); Potassium 3.3 mEq/L (3.5-5.1); Sodium 142 mEq/L (136-145); eGFR For Non-African Americans > 60 (> 60)
[2018-08-16] MEDS: lamoTRIgine 100 MG TABLET PO SCH (07:47)
[2018-08-16] MEDS: (Aclidinium Bromide [Tudorza Pressair] 400 MCG) IH SCH (07:47)
[2018-08-16] MEDS ORDERED: FLUoxetine 20 MG CAPSULE PO SCH (09:00)
[2018-08-16] MEDS ORDERED: amLODIPine 5 MG TABLET PO SCH (09:00)
[2018-08-16] MEDS: Budesonide/Formoterol 160/4.5 1 PUFF INH IH SCH (09:20)
[2018-08-16 10:34] LABS: Alanine Aminotransferase 18 Units/L (7-52); Albumin 4.1 g/dL (3.5-5.7); Albumin/Globulin Ratio 1.4 (1.1-2.2); Alkaline Phosphatase 90 Units/L (34-104); Aspartate Amino Transferase 17 Units/L (13-39); BUN/Creatinine Ratio 28 (6-26); Bilirubin,Total 0.5 mg/dL (0.3-1.0); Blood Urea Nitrogen 16 mg/dL (6-20); Calcium 9.4 mg/dL (8.6-10.3); Carbon Dioxide 28 mEq/L (23-29); Chloride 104 mEq/L (98-107); Glucose 107 mg/dL (70-105); Osmolality,Calculated 286 (280-300); Potassium 4.4 mEq/L (3.5-5.1); Sodium 137 mEq/L (136-145); Total Protein 7.1 g/dL (6.4-8.9); eGFR For Non-African Americans > 60 (> 60)
--- NOTE | 2018-08-16 12:51 | Internal Med History&Physical ---
Date of Encounter: 08/16/18 Time of Encounter: 12:15 Assessment and Plan (1) Chest pain Current visit: Yes Status: Acute Doubt myocardial ischemia from history and physical. Repeat cardiac enzymes were ordered through emergency room. Qualifiers: Chest pain type: unspecified Qualified Code(s): R07.9 - Chest pain, unspecified (2) Weight loss Current visit: Yes Status: Acute TSH and CT of chest, abdomen, pelvis will be done to further evaluate. (3) Anxiety disorder Current visit: No Status: Chronic Continue Prozac and Lamictal. Qualifiers: Anxiety disorder type: generalized anxiety disorder Qualified Code(s): F41.1 - Generalized anxiety disorder (4) Muscle weakness Current visit: Yes Status: Acute Sedimentation rate, CK, and aldolase have been ordered. (5) COPD (chronic obstructive pulmonary disease) Current visit: No Status: Chronic Continue home Rx Qualifiers: COPD type: unspecified COPD Qualified Code(s): J44.9 - Chronic obstructive pulmonary disease, unspecified Internal Medicine - H&P: HPI Chief complaint: Muscle weakness, chest discomfort Admitted From: Emergency Dept Plans for Post Hospital Care: Home History of present illness: Ms. Leiva is a 58 year old female who came to emergency room stating she had increase muscle weakness for 3-4 months that had worsened the past few weeks. She states she had not fallen but did feel weak on walking. She denies significant myalgias or difficulty arising from a chair or reaching up with her arms. She also describes some discomfort in her chest that feels occasionally sharp and occasionally "ache".. She also has a sensation of her heart fluttering. She has not told her PCP about these symptoms. She came to emergency room and was evaluated and admitted to [facility] for ongoing care needs. Cardiovascular history is significant for hypertension. She has some occasional discomfort in her chest on exertion that has been present for over 2 years and is not changing significantly in frequency or intensity. She has no known [place] heart failure DVT or pulmonary embolus. She denies stress test or heart catheter being done. [place] skeletal history significant for DJD but no known gout or osteoporosis. Past Med Surg Social Fam HX - Past Medical History Medical history: COPD, GERD, hyperlipidemia, hypertension, other Additional medical history: Arthritis Psychiatric history: bipolar, previous psychiatric hospitalization - Past Surgical History Surgical History: herniorrhaphy, orthopedic, other, other Additional surgical history: 10 surgeries on left arm, exp lap - "female issues", D&C, tubal ligation - Social History Smoking Status: Current every day smoker Smokeless Tobacco Status: No Alcohol use: none Drug use: marijuana - Family History Mother Adopted: No Family Member Ethnicity: Living Status: Cause of : Suicide Hx Family Cardiac Disorders: Yes Hx Family Respiratory Disorders: Yes Hx Family Cancer: No Hx Family GI Disorders: No Hx Family Endocrine Disorder: No Hx Family Neuromuscular Disorders: No Hx Family Neurologic Disorders: No Hx Family HEENT Disorders: No Hx Family Autoimmune Disorders: No Hx Family Psychosocial Disorders: Yes Internal Medicine - H&P: Meds Oxygen 2 l IH PRN PRN 04/06/18 [History] Aclidinium [place] [Tudorza Pressair] 400 mcg IH BID 08/15/18 [History] Albuterol Sulfate [Albuterol Inhaler] 2 puff IH Q6HR PRN 08/15/18 [History] Budesonide/Formoterol 160/4.5 [Symbicort 160/4.5] 1 puff IH BIDR 08/15/18 [History] FLUoxetine HCl [PROzac] 20 mg PO DAILY 08/15/18 [History] Pantoprazole Sodium [Protonix] 40 mg PO BID 08/15/18 [History] Rosuvastatin [Crestor] 20 mg PO HS 08/15/18 [History] amLODIPine [Norvasc] 10 mg PO DAILY 08/15/18 [History] lamoTRIgine [Lamictal] 100 mg PO BID 08/15/18 [History] Allergy/AdvReac Type Severity Reaction Status Date / Time No Known Allergies Allergy Verified 01/18/17 11:35 All Systems PM: A 10-system review of systems was performed and is negative for pertinent findings except as documented above in the HPI. Review of systems: Gen.: Her weight has decreased from 86.806 kg on 08/17/2016 to 63.503 kg at present time. She states the weight loss was unintentional. Cardiovascular: As per history of present illness Respiratory: She has smoked since age 15 up to 2 packs per day. She has oxygen at home and wears it at bedtime. She has not had PFTs done. She was tested for sleep apnea and was told she had a mild case and did not require treatment. GI: She denies disorder of her liver gallbladder or exocrine pancreas. She reports EGD 2018 showed hiatal hernia with GERD. : She denies hematuria dysuria or kidney stones. Neurologic: She denies large distribution strokes or seizures. Endocrine: She denies diabetes or thyroid disease or hyperlipidemia Hematology/oncology: She denies blood disorders or cancers. She has had anemia in the past which has resolved. Psychiatric: She has anxiety and depression with bipolar disorder [place] skeletal: As per history of present illness. - Constitutional Vitals: Temp Pulse Resp BP Pulse Ox 98.1 F 80 18 107/62 100 08/16/18 11:22 08/16/18 11:22 08/16/18 11:22 08/16/18 11:22 08/16/18 11:22 Exam: Gen.: She is a well developed well-nourished female resting comfortably in bed who appears in no acute distress HEENT: Head is atraumatic and normal cephalic. Eyes: EOMI. There is no scleral icterus. Mouth: Mucosa is moist. Neck: Supple and nontender. There is no thyromegaly or adenopathy noted. Heart: Regular without murmurs gallops or ectopics Chest: She has some tenderness on chest wall compression stating "that is kind of like the pain" Lungs: No wheezes or crackles are heard. Abdomen: Soft and nontender. No masses or guarding are noted. Extremities: She has surgical scars on her left forearm with some intrinsic muscle atrophy of her left hand. There is no cyanosis edema or clubbing noted. Dorsalis pedis and posterior tibial pulses are 1-2 over 2 bilaterally. Neurologic: Mental status: She is talkative and a good historian. Cranial nerves: Smile is symmetric. Forehead wrinkles bilaterally. Tongue protrudes midline. EOMI. Motor: There is no pronator drift. Cerebellar: Fair to nose is intact bilaterally. Skin: Warm and dry Internal Med - H&P Results - Labs CBC & Chem 7: 08/16/18 00:05 08/16/18 09:59 Labs: Short CBC 08/15/18 08/16/18 Range/Units 15:44 00:05 WBC 8.1 5.4 (4.3-11.1) K/mcL Hgb 15.1 13.5 D (11.5-15.4) g/dL Hct 43.4 39.4 (35.3-44.9) % Plt Count 192 164 (140-400) K/mcL Neutrophils # 4.9 2.9 (1.6-8.9) K/mcL BMP 08/15/18 08/16/18 08/16/18 15:44 00:05 09:59 Sodium 141 142 137 Potassium 4.2 3.3 L 4.4 D Chloride 106 113 H 104 Carbon Dioxide 28 25 28 BUN 17 15 16 Creatinine 0.70 0.45 L 0.57 L Glucose 89 99 107 H Calcium 9.7 7.5 L 9.4 Cardiac Enzymes 08/15/18 08/15/18 08/15/18 Range/Units 15:44 17:38 23:55 Troponin I < 0.03 < 0.03 < 0.03 (< 0.04) ng/mL Liver Function 08/15/18 08/16/18 Range/Units 15:44 09:59 Total Bilirubin 0.5 0.5 (0.3-1.0) mg/dL AST 15 17 (13-39) Units/L ALT 18 18 (7-52) Units/L Alkaline Phosphatase 90 90 (34-104) Units/L Albumin 4.2 4.1 (3.5-5.7) g/dL - Impressions ITS Impressions Chest X-Ray 08/15/18 15:30 IMPRESSION: Normal chest x-ray D/ / Samuel Knox MD / Samuel Knox MD Interpreting Provider: Samuel Knox MD
[2018-08-16 13:30] LABS: Thyroid Stimulating Hormone 1.09 mcIU/mL (0.340-5.600)
[2018-08-16 14:46] LABS: Amphetamine Screen,Urine Negative ng/mL (Cutoff=1000); Barbiturate Screen,Urine Negative ng/mL (Cutoff=200); Benzodiazepines Screen,Urine Negative ng/mL (Cutoff=200); Cannabinoid Screen,Urine Positive ng/mL (Cutoff = 50); Cocaine Screen,Urine Negative ng/mL (Cutoff= 300); Opiate Screen,Urine Negative ng/mL (Cutoff=300); Phencyclidine Screen,Urine Negative ng/mL (Cutoff=25)
--- NOTE | 2018-08-16 15:03 | Electrocardiograph Report ---
[place] [id number] Test Date: 2018-08-15 Pat Name: Tsering Leiva Department: EDP-16 Room: [facility] Gender: F Casing Crew: : 1960 Requested By: Jose Call Order Number: [id number] Reading MD: Thompson Perdue Measurements Intervals [place] Rate: 60 P: 71 [place]: 149 QRS: 68 QRSD: 83 T: 64 QT: 412 QTc: 412 Interpretive Statements Sinus rhythm Electronically Signed On 08-16-2018 15:01:23 EDT by Thompson Perdue
--- NOTE | 2018-08-16 15:26 | Discharge Summary ---
Orders not resulted at time of discharge: Pending orders 08/16/18 12:44 Aldolase, Serum Stat Date of Encounter: 08/16/18 Time of Encounter: 15:15 - Discharge Diagnosis (1) Chest pain Priority: Primary Status: Acute Qualifiers: Chest pain type: unspecified Qualified Code(s): R07.9 - Chest pain, unspecified (2) Weight loss Priority: Secondary Status: Acute (3) Anxiety disorder Priority: Secondary Status: Chronic Qualifiers: Anxiety disorder type: generalized anxiety disorder Qualified Code(s): F41.1 - Generalized anxiety disorder (4) Muscle weakness Priority: Secondary Status: Acute (5) COPD (chronic obstructive pulmonary disease) Priority: Secondary Status: Chronic Qualifiers: COPD type: unspecified COPD Qualified Code(s): J44.9 - Chronic obstructive pulmonary disease, unspecified (6) Lung nodule < 6cm on CT Priority: Secondary Status: Acute Hospital course: Ms. Leiva is a 58 year old female who came to emergency room stating she had increase muscle weakness for 3-4 months that had worsened the past few weeks. She states she had not fallen but did feel weak on walking. She denies significant myalgias or difficulty arising from a chair or reaching up with her arms. She also describes some discomfort in her chest that feels occasionally sharp and occasionally "ache".. She also has a sensation of her heart fluttering. She has not told her PCP about these symptoms. She came to emergency room and was evaluated and admitted to [facility] for ongoing care needs. Initial orders were written by the emergency room physician. I saw her on August 16 and performed the history and physical. Repeat cardiac enzymes showed no evidence of myocardial damage. She had discomfort in her chest on costosternal joint compression that she stated was similar to her chest pain at home. Her PCP can order further workup for ASHD as clinically indicated since she also complained of some discomfort on heavy exertion. Additional workup for weight loss showed TSH normal at 1.090. CT of chest abdomen pelvis showed no evidence of malignancy. She had chronic bronchiectasis with scattered areas of mucous plugging. She had 4 mm right upper lobe and 2 mm left lower lobe nodules felt most likely infectious/inflammatory. Follow-up chest CT in 12 months was recommended. Her PCP can order this. CK and aldolase were ordered with results pending at time of discharge. Sedimentation rate was normal at 12 mm per hour. I told her I felt it was reasonable to stop Crestor and see if her sensation of muscle weakness improved. Her PCP can monitor and adjust medication as needed. On the afternoon of August 16 she felt improved and stable for discharge home. She will follow with her PCP Tierra Lamas CNP within 1 week. - Time Spent with Patient Total time spent providing and/or coordinating discharge services: - Discharge Medications Prescriptions: Continue Oxygen 2 l IH PRN PRN PRN Reason: Shortness Of Breath Albuterol Sulfate [Albuterol Inhaler] 2 puff IH Q6HR PRN PRN Reason: Shortness Of Breath Budesonide/Formoterol 160/4.5 [Symbicort 160/4.5] 1 puff IH BIDR Aclidinium [place] [Tudorza Pressair] 400 mcg IH BID Pantoprazole Sodium [Protonix] 40 mg PO BID lamoTRIgine [Lamictal] 100 mg PO BID FLUoxetine HCl [Prozac] 20 mg PO DAILY amLODIPine [Norvasc] 10 mg PO DAILY Discontinued Rosuvastatin [Crestor] 20 mg PO HS Home Medications: Oxygen 2 l IH PRN PRN 04/06/18 [History] Aclidinium [place] [Tudorza Pressair] 400 mcg IH BID 08/15/18 [History] Albuterol Sulfate [Albuterol Inhaler] 2 puff IH Q6HR PRN 08/15/18 [History] Budesonide/Formoterol 160/4.5 [Symbicort 160/4.5] 1 puff IH BIDR 08/15/18 [History] FLUoxetine HCl [Prozac] 20 mg PO DAILY 08/15/18 [History] Pantoprazole Sodium [Protonix] 40 mg PO BID 08/15/18 [History] amLODIPine [Norvasc] 10 mg PO DAILY 08/15/18 [History] lamoTRIgine [Lamictal] 100 mg PO BID 08/15/18 [History] Allergies/Adverse Reactions: Allergy/AdvReac Type Severity Reaction Status Date / Time No Known Allergies Allergy Verified 01/18/17 11:35 Date of admission: 08/15/18 18:24 Primary care physician: Tierra Lamas CNP Consults: 08/15/18 19:06 Consult to Nutrition [CONS] Routine Comment: Consulting Provider: NUTRITION Reason for Dietary Consult: Other - Constitutional Vitals: Temp Pulse Resp BP Pulse Ox 98.1 F 80 18 107/62 100 08/16/18 11:22 08/16/18 11:22 08/16/18 11:22 08/16/18 11:22 08/16/18 11:22 - Patient Status Disposition: Home, Self-Care - Discharge Instructions Follow Up With: NONE,PCP [Primary Care Provider] - 1 week - Diet and Activity Activity: resume usual activities as tolerated Diet: advance to your usual diet
[2018-08-16 16:37] VITALS: BP 148/81
== END 2018-08-16 16:10 | disposition home or self-care (01) ==
LOC: EMEROOPIK 14:58 → INPPIK 14:58
PROVIDERS: ADMIT Internal Medicine; ATTEND Internal Medicine